=== PATIENT | female | born 1980 | race Caucasian/White ===

== ENCOUNTER 2016-08-08 07:55 | Emergency (ER) | payer OTHER ==
--- NOTE | 2016-08-08 08:07 | UC ---
Throat Pain/Nasal Eric HPI - HPI Summary HPI Summary: ST, fever, bilat ear pain x 4 days. Has 2 small children ages 6 and 2.5. Took ibuprofen at 0500. No flu shot this year. Children had flu shots. - History of Current Complaint Stated Complaint: SORE THROAT Time Seen by Provider: 08/08/16 08:03 Hx Obtained From: Patient ?: No Onset/Duration: Gradual Onset, Lasting Days, Still Present Severity: Moderate Pain Intensity: 4 Pain Scale Used: 0-10 Numeric Cough: Sputum Appears - green Associated Signs & Symptoms: Positive: Sinus Discomfort, Nasal Discharge, Other - ear pain bilat - Epiglottits Risk Factors Epiglottis Risk Factors: Negative - Allergies/Home Medications Allergies/Adverse Reactions: Allergies Allergy/AdvReac Type Severity Reaction Status Date / Time Metoclopramide [From Reglan] Allergy See Comment Verified 08/08/16 08:00 Prochlorperazine Allergy See Comment Verified 08/08/16 08:00 [From Compazine] Promethazine [From Phenergan] Allergy See Comment Verified 08/08/16 08:00 ANTI NAUSEA MEDS Allergy Unknown Uncoded 08/08/16 08:00 Reaction Details Home Medications: Home Medications Ibuprofen [Advil] 800 mg PO Q4H PRN 08/08/16 [History Confirmed 08/08/16] Dcykmrdeuwhlj-[id number]-Vtviw [Nyquil Severe Cold/Flu 5-6.25-10-325 mg/15Ml] 1 liq PO BEDTIME PRN 08/08/16 [History Confirmed 08/08/16] PMH/Surg Hx/FS Hx/Imm Hx Previously Healthy: Yes Endocrine History Of: Comment Only: Diabetes - Pre-Diabetic Cardiovascular History Of: Denies: Hypertension, Pacemaker/ICD GI/ History Of: Comment Only: Renal Disease - Hx Renal stones - Surgical History Surgical History: Yes Surgery Procedure, Year, and Place: 09/2015 BIOPSY LYMPH NODE-NECK(BENIGN) [facility] [place]. 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 Lives: With Family Alcohol Use: Weekly Alcohol Amount: 4-5 GLASSES PER WEEK Substance Use Type: Marijuana Substance Use Comment - Amount & Last Used: DAILY WILL REFRAIN THESE 24 HOURS PRIOR TO SURGERY Smoking Status (MU): Former Smoker Type: Cigarettes Amount Used/How Often: 1PPD 13 YRS Have You Smoked in the Last Year: No When Did the Patient Quit Smoking/Using Tobacco: 06/2013 Review of Systems Constitutional: Fever Skin: Negative Eyes: Negative ENT: Sore Throat Respiratory: Negative Cardiovascular: Negative Gastrointestinal: Negative Genitourinary: Negative Motor: Negative Neurovascular: Negative Musculoskeletal: Myalgia Neurological: Negative Psychological: Negative All Other Systems Reviewed And Are Negative: Yes Physical Exam Triage Information Reviewed: Yes Appearance: Well-Nourished, Ill-Appearing, Pain Distress Vital Signs: VS noted and temp 100.6 and tachycardia noted. Vital Signs Reviewed: Yes Eyes: Positive: Conjunctiva Clear ENT: Positive: Pharyngeal erythema, Nasal congestion, TMs normal, Tonsillar exudate, Other: - sinus tenderness. Negative: Tonsillar swelling Neck: Positive: Supple, Nontender, Enlarged Nodes @ - ant cervical bilat Respiratory: Positive: Lungs clear, Normal breath sounds, No respiratory distress Cardiovascular: Positive: RRR, No Murmur, Pulses Normal, Brisk Capillary Refill Abdomen Description: Positive: Nontender, No Organomegaly, Soft Musculoskeletal: Positive: Strength Intact, ROM Intact Neurological: Positive: Alert, Muscle Tone Normal Psychological Exam: Normal Skin Exam: Normal Re-Evaluation - Re-Evaluation First Eval Re-Evaluation Time: 08:45 - informed of strep positive result, given first dose Amox 500mg, awaiting flu result. Also had acetaminophen 650mg. Change: Unchanged - 0848 Throat Pain/Nasal Course/Dx - Course Course Of Treatment: rapid A positive. rapid flu neg- pt notified of both results. - Differential Dx/Diagnosis Differential Diagnosis/HQI/PQRI: Influenza, Laryngitis, Pharyngitis, Sinusitis, URI Provider Diagnoses: strep throat. fever Discharge - Discharge Plan Condition: Stable Disposition: HOME Prescriptions: Amoxicillin (*) 875 mg PO BID #20 tab Patient Education Materials: Strep Throat (ED) Referrals: Shante Chen MD [Primary Care Provider] - Additional Instructions: Your strep swab was positive and your flu swab was negative. Take two doses of the prescribed Amoxicillin today in addition to the dose given in urgent care. Return to urgent care or see your doctor if you have any new or worsening symptoms.
[2016-08-08] MEDS ORDERED: Acetaminophen TAB* 325 MG PO ONE (08:21)
[2016-08-08 08:27] VITALS: BP 103/66
[2016-08-08] MEDS ORDERED: Amoxicillin PO (*) 500 MG CAP PO ONE (08:32)
== END 2016-08-08 08:57 | disposition home or self-care (01) ==
LOC: UCCORT 07:55
DX: J02.0 Streptococcal pharyngitis (principal); R50.9 Fever, unspecified; Z88.8 Allergy status to other drugs, medicaments and biological substances; F12.90 Cannabis use, unspecified, uncomplicated; Z87.891 Personal history of nicotine dependence
CPT/HCPCS: 87502; 87651; 99212; A9270-GY; G0463

== ENCOUNTER 2016-12-28 12:19 | Emergency (ER) | payer OTHER ==
[2016-12-28 12:43] VITALS: BP 120/76
--- NOTE | 2016-12-28 13:38 | RAD ---
INDICATION: Left flank pain COMPARISON: CT abdomen pelvis October 29, 2015 TECHNIQUE: Noncontrast axial source images were acquired from the level hemidiaphragms to the symphysis pubis as part of CT imaging for renal stone. This examination is mildly limited because the patient had an MRI with contrast earlier today and there is some radiographic contrast within the collecting system Lung bases: The lung bases are clear. Liver: The liver is normal in size. Noncontrast imaging shows no evidence of a hepatic mass or ductal dilatation. Gallbladder: There are no calcified gallstones. There is no evidence of wall thickening or pericholecystic fluid.. Spleen: The spleen is normal in size. The noncontrast CT appearance is normal. Pancreas: Noncontrast imaging shows no pancreatic mass or ductal dilitation. Adrenal glands: No masses are identified. Kidneys/Bladder: There are several tiny lower pole calculi on the right which are in the 1 to 2 mm range. There are no other microcalcifications of urinary significance. CT evidence of hydronephrosis. Noncontrast imaging shows no evidence of a renal mass. The bladder is unremarkable.. Adenopathy: There is no evidence of intraperitoneal or retroperitoneal adenopathy. Evaluation is limited without oral contrast. Fluid collections: There are no free or localized fluid collections. Vessels: The aorta and iliac vessels are normal in caliber. There are no significant atherosclerotic changes. The IVC appears normal Pelvic organs: The uterus and adnexa appear normal GI tract: Evaluation of the bowel is limited without oral contrast. The stomach, small bowel, and lower GI tract appear grossly normal. There are no obstructive findings. Soft tissues: No soft tissue abnormalities of the extraperitoneal abdomen or pelvis are identified. Osseous structures: There are no acute osseous findings. IMPRESSION: NONOBSTRUCTIVE RIGHT-SIDED NEPHROLITHIASIS.
--- NOTE | 2016-12-28 13:56 | UC ---
Back Pain HPI - HPI Summary HPI Summary: DULL LEFT FLANK PAIN FOR TWO DAYS; TODAY PAIN BECAME WORSE. NO FEVER. NO ABDOMINAL PAIN. HISTORY KIDNEY STONES IN 2006. HISTORY OF UTI. - History of Current Complaint Chief Complaint: UCGU Stated Complaint: KIDNEY STONE Time Seen by Provider: 12/28/16 12:40 Hx Obtained From: Patient Hx Last Menstrual Period: 12/23/16 ?: No Onset/Duration: Gradual Onset, Lasting Days, Worse Since - THIS AM Timing: Intermittent Severity Initially: Mild Severity Currently: Moderate Back Pain: Is Discrete @ - LEFT FLANK Character: Dull, Aching, Spasmodic Aggravating: Movement, Cough Alleviating: Rest, Position Associated Signs And Symptoms: Positive: Flank Pain. Negative: Swelling, Bruising, Fever, Weakness, Numbness, Tingling, Abdominal Pain, Bladder Incontinence, Bowel Incontinence, Weight Loss, Pain with Weight Bearing - Risk Factors AAA Risk Factors: Negative TAD Risk Factors: Negative Cauda Equina Risk Factors: Negative Epidural Abscess Risk Factors: Negative - Allergies/Home Medications Allergies/Adverse Reactions: Allergies Allergy/AdvReac Type Severity Reaction Status Date / Time Metoclopramide [From Reglan] AdvReac See Comment Verified 12/28/16 12:44 Prochlorperazine AdvReac See Comment Verified 12/28/16 12:44 [From Compazine] Promethazine [From Phenergan] AdvReac See Comment Verified 12/28/16 12:44 PMH/Surg Hx/FS Hx/Imm Hx Previously Healthy: Yes Endocrine History Of: Denies: Diabetes Cardiovascular History Of: Denies: Hypertension, Pacemaker/ICD GI/ History Of: Denies: Renal Disease - Surgical History Surgical History: Yes Surgery Procedure, Year, and Place: 09/2015 BIOPSY LYMPH NODE-NECK([facility]IGN) [facility]. 01/2015 [facility]. SINUS SURGERY 05/2016 - Family History Known Family History: Positive: Hypertension - Social History Occupation: Employed Full-time Lives: With Family Alcohol Use: Daily Alcohol Amount: 4-5 GLASSES PER WEEK Substance Use Type: Marijuana Substance Use Comment - Amount & Last Used: daily usage, last used today Smoking Status (MU): Former Smoker Type: Cigarettes Amount Used/How Often: 1PPD 13 YRS Have You Smoked in the Last Year: No When Did the Patient Quit Smoking/Using Tobacco: 06/2013 - Immunization History Most Recent Influenza Vaccination: not this season Review of Systems Constitutional: Negative Skin: Negative Eyes: Negative ENT: Negative Respiratory: Negative Cardiovascular: Negative Gastrointestinal: Negative Genitourinary: Negative Motor: Negative Neurovascular: Negative Musculoskeletal: Myalgia - LEFT FLANK Neurological: Negative Psychological: Negative All Other Systems Reviewed And Are Negative: Yes Physical Exam Triage Information Reviewed: Yes Appearance: Well-Appearing, No Pain Distress, Well-Nourished Vital Signs: Initial Vital Signs Temp 98.2 F 12/28/16 12:39 Pulse 76 12/28/16 12:39 Resp 14 12/28/16 12:39 BP 120/76 12/28/16 12:39 Pulse Ox 98 12/28/16 12:39 Vital Signs Reviewed: Yes Eye Exam: Normal ENT Exam: Normal ENT: Positive: Normal ENT inspection, Hearing grossly normal, Pharynx normal, TMs normal Dental Exam: Normal Neck exam: Normal Respiratory Exam: Normal Respiratory: Positive: Chest non-tender, Lungs clear, Normal breath sounds, No respiratory distress, No accessory muscle use Cardiovascular Exam: Normal Cardiovascular: Positive: RRR, No Murmur Abdominal Exam: Normal Abdomen Description: Positive: Nontender, No Organomegaly, Soft. Negative: CVA Tenderness (R), CVA Tenderness (L) Musculoskeletal Exam: Normal Neurological Exam: Normal Psychological Exam: Normal Skin Exam: Normal Back Pain Course/Dx - Differential Dx/Diagnosis Differential Diagnosis/HQI/PQRI: Renal Colic Provider Diagnoses: RIGHT SIDED NONOBSTRUCVTIVE RENAL CALCULI Discharge - Discharge Plan Condition: Stable Disposition: HOME Prescriptions: Ketorolac TAB * [Toradol TAB *] 10 mg PO Q8HR PRN #16 tab PRN Reason: Pain Tamsulosin CAP* [Flomax CAP*] 0.4 mg PO DAILY #5 cap Patient Education Materials: Kidney Stones (ED), Renal Colic (ED) Referrals: Shante Chen MD [Primary Care Provider] - Odell Iyer MD [Medical Doctor] -
== END 2016-12-28 14:01 | disposition home or self-care (01) ==
LOC: UCCORT 12:19
DX: N20.0 Calculus of kidney (principal); Z87.442 Personal history of urinary calculi; Z87.440 Personal history of urinary (tract) infections; Z32.02 Encounter for pregnancy test, result negative; Z88.8 Allergy status to other drugs, medicaments and biological substances; Z87.891 Personal history of nicotine dependence
CPT/HCPCS: 74176; 81003; 84702; 99212; G0463

== ENCOUNTER 2017-10-03 11:52 | Emergency (ER) | payer OTHER ==
--- OUTSIDE RECORDS SUMMARY | 2017-10-03 12:24 | XMS REPORT ---
:1980 External Reference #:[id number] Author Organization [facility] Address [address] [place] [address] Phone [phone] Care Team Providers Name Role Phone Shante Chen MD Primary Care Physician Unavailable Payers Type Date Identification Numbers Payment Provider Subscriber Commercial Effective: Policy Number: [id number] Better Felicia Gold 2016 [employer] Number: Vanessa #[id number] [phone] Group Name: Medicaid [facility] [address] PayID: [id number] Problems Date Description Provider Status Onset: 09/15/2017 Allergic rhinitis due to pollen Zack Ham M.D. Active Onset: 06/09/2017 Chronic sinusitis Zack Ham M.D. Active Onset: 06/09/2017 Immunization Zack Ham M.D. Active Family History Date Family Member(s) Problem(s) Comments General Seasonal Allergies General Diabetes General Hypertension General Skin Disease/ rash Father Cancer Father Skin Disease/ rash Mother Seasonal Allergies Mother Diabetes Mother Hypertension First Brother Seasonal Allergies Social History Type Date Description Comments Marital Status Single Lives With Male Partner Lives With Children 2 Home Environment Musty Basement Home Environment Cotton Mattress Cover Home Environment Cotton Comforter Home Environment Down Comforter Home Environment Water Source: Well Home Environment 20+Year Old Home, 2 Years In Current Home Home Environment Lives in a 2 level home Home Environment The basement is moldy Home Environment The basement is wet and dehumidifier used Home Environment Uses propane gas heating Home Environment Does not have an air conditioner Home Environment The floors are carpeted Home Environment The floors are tile Home Environment The home is lillie Home Environment There are draperies in the home Home Environment Does not use air marketing strategy analyst Home Environment Uses a dehumidifier Home Environment Pillows are not encased in an allergy proof case Home Environment Mattress is 8 years old Home Environment Mattress is not encased in an allergy proof case Smoke-Free Home is smoke-free Pets 1 cat Work Status Unemployed Cigarette Use Former Cigarette Smoker Cigarette Use Former Cigarette Smoker 1 Pack Daily Cigars Never Smoked Cigars Pipe Never Smoked A Pipe Smokeless Tobacco Never Used Smokeless Tobacco ETOH Use Consumes 2-3 beers per day ETOH Use Drinks 2 Alcoholic Beverages Per Day ETOH Use Occasionally consumes wine ETOH Use Rarely consumes liquor ETOH Use Currently consumes alcohol Smoking Patient is a former smoker Allergies, Adverse Reactions, Alerts Date Description Reaction Status Severity Comments 06/08/2017 Phenergan involuntary muscle spasms active 06/08/2017 Compazine involuntary muscle spasms active 06/08/2017 Reglan involuntary muscle spasms active Medications Medication Date Status Form Strength Qnty SIG Indications Ordering Provider Amoxicillin/Cl 09/15/ Active Tablets 875-125mg 30tabs 1 twice a Zack avulanate 2017 day Elia Ham Potassium Fluticasone 09/15/ Active Suspension 50mcg/Act 48gm 1 squirt Zack Propionate 2018 each Elia Ham nostril daily Sertraline HCL / Active Tablets 100mg 1xday Gustavo, 0000 MD Shante Magnesium 00/ Active Tablets 400(240Mg) 1x/day Unknown Oxide 0000 mg Potassium 00/ Active Tablets ER 10Meq 2x/day Gustavo, Citrate ER 0000 (1080 mg) MD Shante Multi Vitamin 00/00/ Active Tablets 1x/day Unknown And Minerals 0000 Biotin 0000/ Active Tablets 300mcg 1x/day Unknown 0000 Lorazepam 00/ Active Tablets 1mg only as Unknown 0000 needed Flonase / Active Suspension 50mcg/Act 1 spray Unknown Allergy Relief 0000 each Childrens nostril once daily Vital Signs Date Vital Result Comment 09/15/2017 Height 63 inches 5'3" Weight 116.00 lb Weight in kg's 52.618 Respiratory Rate 16 /min Heart Rate 64 /min O2 % BldC Oximetry 96 % BP Systolic 95 mmHg BP Diastolic 61 mmHg BMI (Body Mass Index) 20.5 kg/m2 07/28/2017 Height 63 inches 5'3" Weight 111.00 lb Weight in kg's 50.350 Respiratory Rate 16 /min Heart Rate 59 /min O2 % BldC Oximetry 98 % BP Systolic 108 mmHg BP Diastolic 74 mmHg BMI (Body Mass Index) 19.7 kg/m2 06/09/2017 Height 63 inches 5'3" Weight 116.00 lb Weight in kg's 52.618 Respiratory Rate 18 /min Heart Rate 63 /min O2 % BldC Oximetry 96 % BP Systolic 95 mmHg BP Diastolic 56 mmHg BMI (Body Mass Index) 20.5 kg/m2 Results Description No Information Procedures Date CPT Code Description Status 07/28/2017 72057 Skin Test Scratch # Of Units ____ Completed Encounters Type Date Location Provider CPT E/M Dx Office Visit 09/15/2017 11:00a [facility] Zack Ham M.D. 10254 J30.1 J32.9 Z23 Office Visit 07/28/2017 11:00a [facility] Zack Ham M.D. 47589 J32.9 Z23 Office Visit 06/09/2017 10:00a [facility] Zack Ham M.D. 09613 J32.9 Z23 Plan of Care Future Appointment(s):12/15/2017 11:00 am - Zack Ham M.D. at [facility]09/15/2017 - Zack Ham M.D.J30.1 Allergic rhinitis due to pollenFollow up:3 months for the follow up she will call when she is ready for the ImmunotherapyRecommendations:she is still thinking about the Immunotherapy we did discuss the benefits and the likely rainey of anaphylaxis once she makes her decision she will let us know keeping in mind that with structural abnormalities the level of improvement might be less than would be expected other crespo she expressed her understanding To keep other differentials like Lopez in mindJ32.9 Chronic sinusitis, unspecifiedRecommendations:she is going to talk to the ENT and explore the possibility of further management from his standpoint she had surgery in the past but than was told that "more could be done" she wants to try the Flonase we did discuss her blood work ( Immunoglobulin level and the Pneumococcal titre again (levels with in normal limit some limitation in the response to the pneumococcal titre she does not want to have any immunoglobulin therapy at this point Fungal sinusitis should also be kept in mind too will do the serum IgE level and AF Ig panel ANCA consider having Flu vaccine Augmentin 875 1 tab po q12 for 2 weeks (to wait for 1-2 days before filling)Z23 Encounter for immunizationNew Labs:Ige TotalAnca C/ P W/RFL Titer Mpo JU7Duubwig A.Fumigatus IgeRecommendations:Patient to discuss influenza with patient's primary-care provider. Educational material provided tothe patient.AllNew Medication:Amoxicillin/Clavulanate Potassium 875-125 mgFluticasone Propionate 50 mcg/Act
--- OUTSIDE RECORDS SUMMARY | 2017-10-03 12:24 | XMS REPORT ---
:1980 External Reference #:[id number] Author Organization [facility] Address [address], [address] [place] [address] Phone [phone] Care Team Providers Name Role Phone Shante Chen MD Care Team Information Licensed Bondsman Unavailable Shante Chen MD Primary Care Physician Unavailable Payers Type Date Identification Numbers Payment Provider Subscriber Commercial Policy Number: [id number] [facility] Felicia Gold PayID: [id number] [address] [place] [address] Medicaid Policy Number: [id number] Medicaid Felicia Gold Group Name: 1 1 [address] PayID: [id number] [place] [address] Problems Date Description Provider Status Onset: 04/09/2015 Nausea Galina Perez M.D. Active Onset: 05/27/2015 Anxiety state Karen Bonner MD Active Onset: 07/08/2015 Candidiasis Jinny Caldwell M.D. Active Onset: 09/05/2017 Allergic rhinitis Shante Chen MD Active Onset: 03/17/2017 Chronic sinusitis Shante Chen MD Active Onset: 03/17/2017 Joint pain Shante Chen MD Active Onset: 01/17/2017 Kidney stone Shante Chen MD Active Onset: 12/15/2016 Pain in left arm Shante Chen MD Active Onset: 12/15/2016 Abdominal pain Shante Chen MD Active Onset: 12/15/2016 Skin sensation disturbance Shante Chen MD Active Onset: 07/26/2011 Tobacco user Nataly Ji, RESPIRATORY SERVICES MANAGER Resolved Resolved: 04/09/2015 Family History Date Family Member(s) Problem(s) Comments Father Skin Cancer melanoma Mother Skin Cancer Social History Type Date Description Comments Lives With Boyfriend Diet Patient follows no dietary restrictions Occupation Not Currently Working ADL's/IADL's Independent with all ADL's Cigarette Use Former Cigarette Smoker ETOH Use Rarely consumes alcohol Smoking Patient is a former smoker Recreational Drug Use Current Drug User marijuana, daily Recreational Drug Use Former Drug User history of multiple drug abuse, denies IVDA Daily Caffeine Consumes on average 3 cups of regular coffee per day Allergies, Adverse Reactions, Alerts Date Description Reaction Status Severity Comments 07/22/2011 Reglan active 07/22/2011 Phenergan active 04/09/2015 Compazine active Medications Medication Date Status Form Strength Qnty SIG Indications Ordering Provider Tamiflu 09/02 Active Capsules 75mg 10cap 1 tab by Shante s mouth twice Gustavo, a day for 5 MD days Potassium 01/17 Active Tablets ER 10Meq 60tab 1 tab by Shante Citrate (1080 mg) s mouth once Gustavo, a day with MD meals Magnesium Active Tablets 250mg 1 by mouth Galina / every day Elia Perez Womens One Daily Active Tablets 1 by mouth Unknown /0000 every day Vitamin D3 Super Active Capsules 2000Unit 1 by mouth Unknown Strength /0000 every day Sertraline HCL Active Tablets 100mg 30tab take 1 s tablet once Gustavo, daily Tramadol HCL 02/09 Hx Tablets 50mg 21tab take one s tablet by Gustavo, mouth every MD 8 hours as needed pain. Flomax 12/30 Hx Capsules 0.4mg 7caps 1 tab by Shante mouth every Gustavo, day Ketorolac 12/30 Hx Tablets 10mg 14tab 1 tab by Shante Tromethamine s mouth twice Gustavo, a day as MD needed for severe pain Nystatin 12/15 Hx Suspension [id number] 473ml 4-6 t/ML milliliters Gustavo, by mouth MD every 6hrs; swish in mouth for several minutes and spit Fluconazole 12/15 Hx Tablets 100mg 16tab 2 tabs po Shante s daily, 1 Gustavo, tab daily MD for 14 days Cyclobenzaprine 10/18 Hx Tablets 10mg 90tab 1 by mouth Shante HCL s at night as Gustavo, needed for MD muscle spasms/musc le pain Gabapentin 02/23 Hx Capsules 100mg 180ca 2 tab by Shante ps mouth three Gustavo, times a day Ativan 11/23 Hx Tablets 1mg 14tab /2-1 tab Tadeus E. /2015 s per day day Ha, - as needed 02/23 for anxiety Ofloxacin 10/12 Hx Solution 0.3% 20ml 1-2 drops Shante (Ophthalmic) four times Gustavo, - daily for 7 Sudafed Nasal 09/05 Hx Tablets 30mg 30tab 1 tab by J06.9 Shante Decongestant s mouth twice Gustavo, Maximum Strength - a day 10/02 Mucinex DM 09/05 Hx Tablets ER 30-600mg 30tab 1 tab every Shante 12HR s 12 hours as Gustavo, - needed 10/02 Ativan 08/04 Hx Tablets 1mg 60tab 1 by mouth Tadeus E. s each day Ha, - 10/02 Ativan 07/29 Hx Tablets 0.5mg 5tabs 2 tab by Shante mouth once Gustavo, - a day as 08/04 needed for anxiety Nystatin 06/26 Hx Suspension [id number] 500ml 4-6 ml po q B37.9 Shante t/ML 6hrs; swish Gustavo, - in mouth 08/12 for minutes and spit Amoxicillin/Clav 06/20 Hx Tablets 875-125mg 6tabs 1 tab by Shante ulanate mouth Gustavo, Potassium - q12hrs for 06/30 3 days Sertraline HCL 06/17 Hx Tablets 100mg 45tab 1 and 12 Tadeus E. s by mouth Ha, - every day 07/01 Sertraline HCL 05/27 Hx Tablets 150 45tab 1 and 1/2 Tadeus E. s by mouth Ha, - every day 06/17 Lorazepam 05/07 Hx Tablets 1mg 30tab 1 tab by R11.0 Kens E. 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 HCL - tablet by Ha, 05/27/2015 mouth once MD daily Hx Tablets 27-1mg 100tab 1 by mouth Suyapa Case s every day M.DJoseph 05/06/2015 Propranolol Hx Tablets 20mg take one KIA Case - tablet by MJordi 06/20/2015 mouth once a day Dramamine Hx Tablets 50mg as needed Suyapa Case M.D. 06/20/2015 Riboflavin Hx Capsules 100mg 1 by mouth R11.0 Unknown - every day 08/12/2015 *taking OTC* Xanax Hx Tablets 0.25mg take 1 tab Unknown - by mouth 07/01/2015 up to three times daily as needed for anxiety Metronidazole Hx Gel 0.75% Santino Eng MD 07/08/2015 Fluconazole Hx Tablets 150mg 1 po qday, Santino Eng - last dose MD Le 07/08/2015 07/01/15. Ativan Hx Tablets 0.25mg 10tabs 1 tab by Unknown - mouth once 07/29/2015 a day as needed anxiety Tamsulosin Hx Capsules 0.4mg take 1 Unknown HCL capsule once daily Immunizations CPT Code Status Date Vaccine Lot # [id number] Given 09/30/2010 Tdap injection 70312 Given 09/30/2010 flu vaccination Vital Signs Date Vital Result Comment 09/05/2017 BP Systolic Sitting Right Arm 107 mmHg BP Diastolic Sitting Right Arm 70 mmHg Heart Rate 91 /min Height 64 inches 5'4" Weight 117.00 lb BMI (Body Mass Index) 20.1 kg/m2 BSA (Body Surface Area) 1.56 m2 [place] body weight in kilograms 54 03/17/2017 BP Systolic 107 mmHg BP Diastolic 67 mmHg Heart Rate 77 /min Respiratory Rate 20 /min Height 64 inches 5'4" Weight 114.00 lb BMI (Body Mass Index) 19.6 kg/m2 BSA (Body Surface Area) 1.54 m2 [place] body weight in kilograms 54 O2 % BldC Oximetry 96 % 01/17/2017 BP Systolic Sitting Right Arm 106 mmHg BP Diastolic Sitting Right Arm 72 mmHg Height 64 inches 5'4" Weight 110.00 lb BMI (Body Mass Index) 18.9 kg/m2 BSA (Body Surface Area) 1.52 m2 [place] body weight in kilograms 54 01/05/2017 BP Systolic Sitting Right Arm 110 mmHg BP Diastolic Sitting Right Arm 80 mmHg Height 64 inches 5'4" Weight 113.00 lb BMI (Body Mass Index) 19.4 kg/m2 BSA (Body Surface Area) 1.53 m2 [place] body weight in kilograms 54 12/15/2016 BP Systolic 99 mmHg BP Diastolic 60 mmHg Heart Rate 90 /min Height 64 inches 5'4" Weight 115.00 lb BMI (Body Mass Index) 19.7 kg/m2 BSA (Body Surface Area) 1.55 m2 [place] body weight in kilograms 54 10/18/2016 BP Systolic 114 mmHg BP Diastolic 64 mmHg Heart Rate 78 /min Height 64 inches 5'4" Weight 117.00 lb BMI (Body Mass Index) 20.1 kg/m2 BSA (Body Surface Area) 1.56 m2 02/24/2016 BP Systolic Sitting Right Arm 98 mmHg BP Diastolic Sitting Right Arm 62 mmHg Height 64 inches 5'4" Weight 109.00 lb BMI (Body Mass Index) 18.7 kg/m2 BSA (Body Surface Area) 1.51 m2 10/02/2015 BP Systolic Sitting Left Arm 106 mmHg BP Diastolic Sitting Left Arm 72 mmHg Heart Rate 68 /min Respiratory Rate 19 /min Height 64 inches 5'4" Weight 105.00 lb BMI (Body Mass Index) 18.0 kg/m2 BSA (Body Surface Area) 1.49 m2 09/05/2015 BP Systolic Sitting Left Arm 108 mmHg BP Diastolic Sitting Left Arm 82 mmHg Body Temperature 98.2 F Heart Rate 68 /min Height 64 inches 5'4" Weight 107.00 lb BMI (Body Mass Index) 18.4 kg/m2 BSA (Body Surface Area) 1.50 m2 O2 % BldC Oximetry 97 % 08/13/2015 BP Systolic 112 mmHg BP Diastolic 58 mmHg Height 64 inches 5'4" Weight 110.00 lb BMI (Body Mass Index) 18.9 kg/m2 BSA (Body Surface Area) 1.52 m2 07/08/2015 BP Systolic Sitting Left Arm 106 mmHg BP Diastolic Sitting Left Arm 62 mmHg Body Temperature 97.6 F Height 64 inches 5'4" Weight 108.50 lb BMI (Body Mass Index) 18.6 kg/m2 BSA (Body Surface Area) 1.51 m2 07/01/2015 BP Systolic 122 mmHg BP Diastolic 60 mmHg Height 64 inches 5'4" Weight 107.00 lb BMI (Body Mass Index) 18.4 kg/m2 BSA (Body Surface Area) 1.50 m2 06/20/2015 BP Systolic 98 mmHg BP Diastolic 66 mmHg Body Temperature 98.2 F Heart Rate 52 /min Height 64 inches 5'4" Weight 109.00 lb BMI (Body Mass Index) 18.7 kg/m2 BSA (Body Surface Area) 1.51 m2 05/27/2015 BP Systolic 95 mmHg BP Diastolic 60 mmHg Heart Rate 80 /min Height 64 inches 5'4" Weight 105.00 lb BMI (Body Mass Index) 18.0 kg/m2 BSA (Body Surface Area) 1.49 m2 O2 % BldC Oximetry 98 % 05/07/2015 BP Systolic 110 mmHg BP Diastolic 66 mmHg Heart Rate 86 /min Height 64 inches 5'4" Weight 105.00 lb BMI (Body Mass Index) 18.0 kg/m2 BSA (Body Surface Area) 1.49 m2 O2 % BldC Oximetry 96 % Ra 05/02/2015 BP Systolic 104 mmHg BP Diastolic 62 mmHg Height 63 inches 5'3" Weight 105.50 lb BMI (Body Mass Index) 18.7 kg/m2 BSA (Body Surface Area) 1.47 m2 Last Menstrual Period [id number] 04/11/2015 BP Systolic 102 mmHg BP Diastolic 82 mmHg Heart Rate 100 /min Respiratory Rate 20 /min Weight 106.12 lb 04/09/2015 BP Systolic 102 mmHg BP Diastolic 62 mmHg Heart Rate 72 /min Respiratory Rate 18 /min Height 63 inches 5'3" Weight 107.00 lb BMI (Body Mass Index) 19.0 kg/m2 BSA (Body Surface Area) 1.48 m2 09/03/2014 BP Systolic 118 mmHg BP Diastolic 72 mmHg Body Temperature 98.7 F Heart Rate 82 /min Respiratory Rate 19 /min Height 63 inches 5'3" Weight 119.00 lb 11/06/2013 BP Systolic 112 mmHg BP Diastolic 72 mmHg Body Temperature 98.9 F Height 63 inches 5'3" Weight 129.00 lb 01/12/2013 BP Systolic 106 mmHg BP Diastolic 64 mmHg Body Temperature 98.3 F Height 64 inches 5'4" Weight 107.00 lb 09/25/2012 BP Systolic 114 mmHg BP Diastolic 72 mmHg Body Temperature 98.0 F Height 63 inches 5'3" Weight 110.00 lb 09/27/2011 BP Systolic 104 mmHg BP Diastolic 66 mmHg Heart Rate 74 /min Respiratory Rate 18 /min Height 64 inches 5'4" Weight 105.00 lb 07/23/2011 BP Systolic 108 mmHg BP Diastolic 66 mmHg Height 64 inches 5'4" Weight 107.00 lb 07/22/2011 BP Systolic 122 mmHg BP Diastolic 78 mmHg Body Temperature 98.2 F Height 64 inches 5'4" Weight 107.00 lb Results Test Date Test Result H/L Range Note Lyme Igg & Igm By 01/17/2017 Lyme AB Igg By Western . 1 Western Blot Blot P93 AB Absent . 1 P66 AB Absent . 1 P58 AB Absent . 1 P45 AB Absent . 1 P41 AB Absent . 1 P39 AB Absent . 1 P30 AB Absent . 1 P28 AB Absent . 1 P23 AB Absent . 1 P18 AB Absent . 1 Lyme Igg WB Interpretation Negative . 1, 2 Lyme AB Igm By Western Blot . 1 P41 AB Absent . 1 P39 AB Absent . 1 P23 AB Present . 1 Lyme Igm WB Interpretation Negative . 1, 3 Laboratory test finding 01/11/2017 Immunoglobulin G TNP () 4 Immunoglobulin M 123 mg/dL 37 - 286 5 Immunoglobulin A 142 mg/dL 61 - 356 6 Igg Subclasses 01/11/2017 Total IgG 1030 mg/dL 767 - 1590 Immunoglobulin G1 422 mg/dL 341 - 894 Immunoglobulin G2 346 mg/dL 171 - 632 Immunoglobulin G3 72.2 mg/dL 7 Immunoglobulin G4 9.6 mg/dL 8 Diptheria Igg Titer 01/11/2017 Diphtheria IgG Antibody Positive 9 Diphtheria IgG Value > 1.00 IU/mL 10 Lymphocyte Proliferation PNL 01/11/2017 Mitogens Interpretation See Comment 11 Viab of Lymphs at Day 0 92.2 % >=75.0 Max Prolif of PWM as %CD45 28.5 % >=4.5 Max Prolif of PWM as %CD3 23.5 % >=3.5 Max Prolif of PWM as %CD19 26.8 % >=3.9 Max Prolif of Pha as %CD45 82.2 % >=49.9 Max Prolif of Pha as %CD3 83.0 % >=58.5 Mitogen Comment See Comment 12 Lymph Prolif Antigen Interp See Comment 13 T&B Cell Lymphocyte 01/11/2017 Absolute CD45 Count 3.32 thou/mcL 0.82 -2.84 Evaluation Percent CD3 Cells (T Cells) 87 % 58-86 Percent CD19 Cells (B Cells) 10 % 7-24 % CD16+CD56 Cells (NK Cells) 3 % 4-28 Percent CD4 Cell ([place] Cell) 58 % 32-64 Percent CD8 Cells (Supp Cell) 28 % 15-40 Absolute CD3 Count (T Cells) 2881 cells/L 550-2202 Absolute CD19 Count (B Cells) 338 cells/L 81-409 Absolute CD16+CD56 Count (NK) 86 cells/L 59-513 Absolute CD4 Count (Help Cell) 1934 cells/L 365-1437 Absolute CD8 Count (Supp Cell) 939 cells/L 171-846 T-[place]/Suppressor Ratio 2.1 >=0.9 T B Cell Comment See Comment 14 S.Pneumoniae Igg AB 23 01/11/2017 S. pneumoniae Type 1 16.2 g/mL >= 2.3 Serotyp IgG AB S. pneumoniae Type 2 IgG AB 3.3 g/mL >=1.0 S. pneumoniae Type 3 IgG AB 3.9 g/mL >=1.8 S. pneumoniae Type 4 IgG AB 1.3 g/mL >=0.6 S. pneumoniae Type 5 IgG AB 4.9 g/mL >=10.7 S. pneumoniae Type 8 IgG AB 0.8 g/mL >=2.9 S. pneumoniae Type 9N IgG AB 2.2 g/mL >=9.2 S. pneumoniae Type 12F IgG AB 0.1 g/mL >=0.6 S. pneumoniae Type 14 IgG AB 0.7 g/mL >=7.0 S. pneumoniae Type 17F IgG AB 3.5 g/mL >=7.8 S. pneumoniae Type 19F IgG AB 27.4 g/mL >=15.0 S. pneumoniae Type 20 IgG AB 0.2 g/mL >=1.3 S. pneumoniae Type 22F IgG AB 52.9 g/mL >=7.2 S. pneumoniae Type 23F IgG AB 68.3 g/mL >=8.0 S. pneumoniae Type 6B IgG AB 0.7 g/mL >=4.7 S. pneumoniae Type 10A IgG AB 0.3 g/mL >=2.9 S. pneumoniae Type 11A IgG AB 1.1 g/mL >=2.4 S. pneumoniae Type 7F IgG AB 7.9 g/mL >=3.2 S. pneumoniae Type 15B IgG AB 7.6 g/mL >=3.3 S. pneumoniae Type 18C IgG AB 0.8 g/mL >=3.3 S. pneumoniae Type 19A IgG AB 0.9 g/mL >=17.1 S. pneumoniae Type 9V IgG AB 16.6 g/mL >=2.6 S. pneumoniae Type 33F IgG AB 2.6 g/mL >=1.7 15 Tetanus Toxoid Igg Antibody,S 01/11/2017 Tetanus Toxoid IgG Antibody Positive 16 Tetanus Toxoid IgG Value 1.30 IU/mL 17 Comprehensive Metabolic Panel 01/05/2017 Glucose 83 mg/dL 74-106 18 BUN 13 mg/dL 7-18 18 Creatinine 0.8 mg/dL 0.6-1.3 18 Glom Filtration Rate, Estimate >60 mL/min >60 18 If >60 mL/min >60 18, 19 BUN/Creat 16.2 ratio 18 Sodium 141 mmol/L 136-145 18 Potassium 4.3 mmol/L 3.5-5.1 18 Chloride 106 mmol/L 98-107 18 Carbon Dioxide 28 mmol/L 21-32 18 Anion Gap 7 mEq/L Low 8-16 18 Calcium 8.8 mg/dL 8.5-10.1 18 Total Protein 7.4 g/dL 6.4-8.2 18 Albumin 4.1 g/dL 3.4-5.0 18 Globulin 3.3 g/dL 1.9-4.3 18 Alb/Glob 1.2 ratio 18 Bilirubin,Total 0.3 mg/dL 0.2-1.0 18 Sgot/Ast 13 U/L Low 15-37 18, 20 SGPT/Alt 19 U/L 12-78 18 Alkaline Phosphatase 62 U/L 45-117 18 CBS W/Automated Diff 01/05/2017 White Blood Count 12.0 K/uL High 3.1-10.7 18 Red Blood Count 4.66 M/uL 3.90-5.40 18 Hemoglobin 13.9 gm/dL 11.6-15.8 18 Hematocrit 41.4 % 36.0-46.1 18 Mean Cell Volume 88.8 fl 80.9-99.0 18 Mean Corpuscular HGB 29.8 pg 25.9-32.7 18 Mean Corpuscular HGB Conc 33.6 g/dL 30.8-34.3 18 Platelet Count 276 K/uL 150-400 18 Red Cell Distri Width SD 42.6 fl 3-47 18 Red Cell Distri Width %CV 13.4 % 11.7-14.4 18 Mean Platelet Volume 11.8 fL 8.9-12.4 18 Neut% 67.7 % 40.4-72.8 18 Lymph % 25.8 % 20.0-42.0 18 Floyd % 5.8 % 4.3-13.2 18 Eo% 0.4 % 0.0-6.6 18 Bas% 0.3 % 0.0-1.1 18 Neut# 8.11 K/uL High 1.8-7.0 18 Lymph # 3.09 K/uL 1.0-4.0 18 Floyd # 0.69 K/uL 0.3-0.9 18 Eos # 0.05 K/uL 0.0-0.5 18 Baso # 0.03 K/uL 0.0-0.1 18 Laboratory test finding 01/05/2017 Thyroid Stim Hormone 0.51 uIU/mL 0.30- 4.20 18 Free T4 1.38 ng/dL 0.76-1.46 18 Sedimentation Rate 3 mm/hr 0-20 18, 21 C-Reactive Protein,Cardiac 0.56 mg/L <3.0 18 Anti-Nuclear Antibodies Direct Negative AU/mL Negative 18, 22 Glycohemoglobin A1c 01/05/2017 Glycohemoglobin (A1c) 5.5 % 4.2-6.3 18, 23 eAG 111 mg/dL 18 Laboratory test finding 12/28/2016 Poc , Urine Negative Negative 24 Laboratory Studies 12/28/2016 Bedside Urine Specific 1.015 1.010-1.030 [place] (Lab Bedside Urine Urobilinogen (Lab) 0.2 Bedside Urine pH (Lab) 7.0 5-9 Rapid Influenza A & B 08/08/2016 Influenza A Molecular NEGATIVE Negative 25 Molecular Influenza B Molecular NEGATIVE Negative Laboratory test finding 08/08/2016 Rapid Strep Molecular POSITIVE Negative 26 , urine (cc) 01/15/2016 HCG, Urine Qualitative Negative Negative Laboratory test finding 10/29/2015 Magnesium 2.3 mg/dL 1.8-2.4 Glycohemoglobin A1c 10/29/2015 Glycohemoglobin (A1c) 5.6 % 4.2-6.3 27 eAG 114 mg/dL Comprehensive Metabolic Panel 10/29/2015 Glucose 86 mg/dL 74-106 BUN 12 mg/dL 7-18 Creatinine 0.9 mg/dL 0.6-1.3 Glom Filtration Rate, Estimate >60 mL/min >60 If >60 mL/min >60 28 BUN/Creat 13.3 ratio Sodium 140 mmol/L 136-145 Potassium 4.2 mmol/L 3.5-5.1 Chloride 106 mmol/L 98-107 Carbon Dioxide 28 mmol/L 21-32 Anion Gap 6 mEq/L Low 8-16 Calcium 8.4 mg/dL Low 8.5-10.1 Total Protein 7.0 g/dL 6.4-8.2 Albumin 3.4 g/dL 3.4-5.0 Globulin 3.6 g/dL 1.9-4.3 Alb/Glob 0.9 ratio Bilirubin,Total 0.3 mg/dL 0.2-1.0 Sgot/Ast 14 U/L Low 15-37 29 SGPT/Alt 18 U/L 12-78 Alkaline Phosphatase 55 U/L 45-117 Laboratory test finding 10/02/2015 Ferritin 55 ng/mL 8-252 Iron-Tibc-%Sat 10/02/2015 Serum Iron 85 g/dL 50-170 Total Iron Binding Capacity 445 g/dL 250-450 Transferrin %Saturation 19 % 12-57 Vitamin B12 And Folate 10/02/2015 Vitamin B12 595 pg/mL 193-986 Folic Acid 47.6 ng/mL High 3.1-17.5 30 CBC W/Automated Diff 10/02/2015 White Blood Count 10.1 K/uL 3.1-10.7 Red Blood Count 4.49 M/uL 3.90-5.40 Hemoglobin 13.1 gm/dL 11.6-15.8 Hematocrit 39.3 % 36.0-46.1 Mean Cell Volume 87.5 fl 80.9-99.0 Mean Corpuscular HGB 29.2 pg 25.9-32.7 Mean Corpuscular HGB Conc 33.3 g/dL 30.8-34.3 Platelet Count 259 K/uL 155-360 Red Cell Distri Width SD 39.6 fl 3-47 Red Cell Distri Width %CV 12.7 % 11.7-14.4 Mean Platelet Volume 11.2 fL 8.9-12.4 Neut% 59.2 % 40.4-72.8 Lymph % 34.5 % 17.0-46.1 Floyd % 4.8 % 4.3-13.2 Eo% 1.0 % 0.0-6.6 Bas% 0.5 % 0.0-1.1 Neut# 5.96 K/uL 1.8-7.0 Lymph # 3.47 K/uL 1.8-7.0 Floyd # 0.48 K/uL 0.3-0.9 Eos # 0.10 K/uL 0.0-0.5 Baso # 0.05 K/uL 0.0-0.1 Glycohemoglobin A1c 08/29/2015 Glycohemoglobin (A1c) 5.7 % 4.2-6.3 31 eAG 117 mg/dL Basic Metabolic Panel 08/29/2015 Basic Metabolic Panel (SEE NOTE) 32 Glucose 93 mg/dL 74-106 BUN 8 mg/dL 7-18 Creatinine 0.9 mg/dL 0.6-1.3 Glom Filtration Rate, Estimate >60 mL/min >60 If >60 mL/min >60 33 BUN/Creat 8.8 ratio Sodium 138 mmol/L 136-145 Potassium 3.7 mmol/L 3.5-5.1 Chloride 106 mmol/L 98-107 Carbon Dioxide 27 mmol/L 21-32 Anion Gap 5 mEq/L Low 8-16 Calcium 8.5 mg/dL 8.5-10.1 Laboratory test finding 06/06/2015 Ferritin 37 ng/mL 8-252 Comprehensive Metabolic Panel 05/07/2015 Glucose 113 mg/dL High 74-106 BUN 11 mg/dL 7-18 Creatinine 1.1 mg/dL 0.6-1.3 Glom Filtration Rate, Estimate 60 mL/min >60 If >60 mL/min >60 34 BUN/Creat 10.0 ratio Sodium 139 mmol/L 136-145 Potassium 4.0 mmol/L 3.5-5.1 Chloride 106 mmol/L 98-107 Carbon Dioxide 28 mmol/L 21-32 Anion Gap 5 mEq/L Low 8-16 Calcium 8.5 mg/dL 8.5-10.1 Total Protein 6.8 g/dL 6.4-8.2 Albumin 3.9 g/dL 3.4-5.0 Globulin 2.9 g/dL 1.9-4.3 Alb/Glob 1.3 ratio Bilirubin,Total 0.2 mg/dL 0.2-1.0 Sgot/Ast 7 U/L Low 15-37 35 SGPT/Alt 18 U/L 12-78 Alkaline Phosphatase 48 U/L 45-117 CBS W/Automated Diff 05/07/2015 White Blood Count 10.4 K/uL 3.1-10.7 Red Blood Count 4.51 M/uL 3.90-5.40 Hemoglobin 13.5 gm/dL 11.6-15.8 Hematocrit 39.9 % 36.0-46.1 Mean Cell Volume 88.5 fl 80.9-99.0 Mean Corpuscular HGB 29.9 pg 25.9-32.7 Mean Corpuscular HGB Conc 33.8 g/dL 30.8-34.3 Platelet Count 268 K/uL 155-360 Red Cell Distri Width SD 41.6 fl 3-47 Red Cell Distri Width %CV 13.1 % 11.7-14.4 Mean Platelet Volume 11.5 fL 8.9-12.4 Neut% 68.5 % 40.4-72.8 Lymph % 24.6 % 17.0-46.1 Floyd % 6.1 % 4.3-13.2 Eo% 0.5 % 0.0-6.6 Bas% 0.3 % 0.0-1.1 Neut# 7.12 K/uL High 1.0-7.0 Lymph # 2.56 K/uL 1.8-7.0 Floyd # 0.63 K/uL 0.3-0.9 Eos # 0.05 K/uL 0.0-0.5 Baso # 0.03 K/uL 0.0-0.1 Laboratory test finding 05/07/2015 Vitamin B12 665 pg/mL 193-986 36 Vitamin D,25-Hydroxy 41.1 ng/mL 30.0-100.0 37 Laboratory test 05/07/2015 Anti-Nuclear Antibodies Negative AU/mL Negative 38 finding Direct Panel [id number] See Note 39 HCV Rna PCR,Quant Reflex 05/07/2015 Hepatitis C Quantitation See Note IU/mL . 40 Ana Paula HCV log10 See Note [id number] HCV Genotype See Note 42 Test Info See Note 43 Laboratory test finding 05/07/2015 LC Miscellaneous Test See Note 44 Request Glycohemoglobin A1c 04/11/2015 Glycohemoglobin (A1c) 5.6 % 4.2-6.3 45 eAG 114 mg/dL Laboratory test 04/11/2015 Thyroid Stim Hormone 0.87 uIU/mL 0.36-3.74 finding Thyroid Antibodies 04/11/2015 Antithyroglobulin Antibody < 1.0 IU/mL 0.0-0.9 46 Thyroid Peroxidase Antibodies 8 IU/mL 0-34 47 Laboratory test finding 04/11/2015 FSH 6.9 mIU/mL 48 Estradiol,Serum 182.4 pg/mL 49 Luteinizing Hormone 4.0 mIU/mL 50 Progesterone 0.4 ng/mL . 51 Prolactin 5.2 ng/mL 52 Laboratory test finding 03/17/2015 Coproporphyrin I 1 umol/molCRT Coproporphyrin III 7 umol/molCRT Creatinine, Urine 156 Creatinine,Urine 24H 1014 (700-1600) Heptacarboxylate 0 umol/m 53 Hours Of Collection 24 54 Porphobilin Umol/L 4.2 umol/L 55 Porphobilin Ur/Day 2.7 umol/d 56 Porphyrin Interp Negative 57 Urine Volume 650 mL 58 Uroporphyrin 1 umol/m 59 Hiaa 5 Urine 03/17/2015 5 Hiaa Ur Ratio 3 mg/g (0-14) 5 Hiaa Urine MG/Day 3 mg/d (0-15) 60 5 Hiaa Urine MG/L 4.2 (0.0-15.0) 61 5Hiaa Interpretation See Note 62 Creatinine, Urine 157 Creatinine,Urine 24H 1020 (700-1600) Hours Of Collection 24 63 Urine Volume 650 mL 64 5 Aminolevulinic Urine 03/17/2015 Ala Per Day 19 umol/d 65 Ala Per Volume 29 umol/L 66 Creatinine, Urine 157 Creatinine,Urine 24H 1020 (700-1600) Hours Of Collection 24 67 Urine Volume 650 mL 68 Lead Venous 03/14/2015 Lead,Venous WB @ <2.0 ug/dL (0.0-9.9) 69 Iron Panel 03/14/2015 % Saturation 25 % (12-50) Iron,Total @ 87 g/dL (35-150) Tibc @ 354 g/dL (250-450) Uibc @ 267 g/dL (130-375) Creatinine 03/14/2015 Creatinine 0.8 mg/dL (0.6-1.0) 70 GFR 87 ml/min/1.73m2 (>59) GFR ( Amer) >90 ml/min/1.73m2 (>59) GFR Interpretation <See Note> Anca Igg 03/14/2015 Anca Igg <1:20 71 Laboratory test finding 03/14/2015 C Reactive Protein @ <0.3 mg/dL ( 0.0-0.5) 72 C1 Esterase Inhib 25 mg/dL 73 Ferritin @ 29 ng/mL (8-252) Free Thyroxine @ 1.59 ng/dL High (0.76-1.46) TSH,Ultrasensitive @ 0.677 mIU/L (0.360-4.170) Transglutaminase Iga 3 [arb'U] (<20) 74 Transglutaminase Igg 2 [arb'U] (<20) Vitamin B12 @ 872 pg/mL (193-986) Comprehensive Metabolic Panel 11/06/2013 Alb/Glob 0.9 ratio Albumin 3.4 g/dL Low 3.5-5.0 Alkaline Phosphatase 96 U/L 50-136 Anion Gap 12 mEq/L 8-16 BUN 12 mg/dL 5-23 BUN/Creat 20.0 ratio Bilirubin,Total 0.2 mg/dL 0.2-1.2 Calcium 9.2 mg/dL 8.5-10.1 Carbon Dioxide 27 mEq/L 18-29 Chloride 104 mmol/L 98-107 Creatinine 0.6 mg/dL 0.5-1.4 Globulin 3.8 g/dL 1.9-4.3 Glom Filtration Rate, Estimate >60 mL/min >60 Glucose 73 mg/dL Low 76-115 If >60 mL/min >60 75 Potassium 3.9 mmol/L 3.5-5.1 SGPT/Alt 20 U/L Low 30-65 Sgot/Ast 14 U/L Low 16-40 Sodium 139 mmol/L 136-145 Total Protein 7.2 g/dL 6.3-8.0 GC / Chlamydia 09/27/2011 Chlamydia Negative GC Negative 76 Laboratory test finding 09/27/2011 Cytology Pap See Note 77 1 R20.2 M25.50 2 Positive: 5 of the following Borrelia-specific bands: 18,23,28,30,39,41,45,58, 66, and 93. Negative: No bands or banding patterns which do not meet positive criteria. 3 Note: An equivocal or positive EIA result followed by a negative Western Blot result is considered NEGATIVE. An equivocal or positive EIA result followed by a positive Western Blot is considered POSITIVE by the CDC. Positive: 2 of the following bands: 23,39 or 41 Negative: No bands or banding patterns which do not meet positive criteria. Criteria for positivity are those recommended by CDC/ASTPHLD. p23=Osp C, r39=tehngsfmb Note: Sera from individuals with the following may cross react in the [place] Western Blot assays: other spirochetal diseases (periodontal disease, leptospirosis, relapsing fever, yaws, and pinta); connective autoimmune (Rheumatoid Arthritis and Systemic Lupus Erythematosus and also individuals with Antinuclear Antibody); other infections (Quintana Spotted Fever; Reji-Acharya Virus, and Cytomegalovirus). Performed at: [facility] [address] [id number] Manager Floral: Alma Hays MD, Phone: [phone] Immunoglobulin G (IgG), S was cancelled on 01/13/2017 at 11:26; Test cancelled by RBS rule <IGGS2> Reason: Test IGG is cancelled due to be ordered with Test IGGS Test Performed by: [address] [address] 5 Test Performed by: [address] [id number] 6 Test Performed by: [address] [address] 7 REFERENCE VALUE 18.4 - 106.0 8 REFERENCE VALUE 2.4 - 121.0 Test Performed by: [address] [address] 9 REFERENCE VALUE Vaccinated: Positive (>=0.01 IU/mL) Unvaccinated: Negative (< 0.01 IU/mL) 10 Test Performed by: [facility] - [address] [address] 11 Normal and robust lymphocyte proliferative responses to PHA and PWM. Reviewed by: Glenn Mendoza, Ph.D., D([facility]), FAAAAI ADDITIONAL INFORMATION Data are expressed as % proliferating cells of total specific cell population. The % Day 0 viability of the sample was determined using a flow cytometry assay which includes individual assessment of viable, apoptotic and cells. This method differs from the commonly used method of trypan blue dye exclusion which only identifies cells, and counts apoptotic cells along with the viable cells, resulting in an apparent higher cell viability. However, apoptotic cells do not contribute to cell proliferation and therefore accurate measurement of only viable cells provides meaningful information on the cells involved in stimulation and proliferative response. Strongly recommend using "critical ambient shipping boxes" available through [facility] ([facility]) inventory to ensure optimal transport of critical samples used for functional cellular assays. This test was developed using an analyte specific reagent. Its performance characteristics were determined by [facility] in a manner consistent with CLIA requirements. This test has not been cleared or approved by the U.S. Food and Drug Administration. 12 Mononuclear cell preparation contains excess neutrophils. Consider repeating this test if clinically indicated. Test Performed by: [facility] - [address] [address] 13 Normal proliferative responses to antigens - Miya (CA) and Tetanus toxoid (TT). Reviewed by: Braxton Mandel M.D. ADDITIONAL INFORMATION Data are expressed as % proliferating cells of total specific cell population. The % Day 0 viability of the sample was determined using a flow cytometry assay which includes individual assessment of viable, apoptotic and cells. This method differs from the commonly used method of trypan blue dye exclusion which only identifies cells, and counts apoptotic cells along with the viable cells, resulting in an apparent higher cell viability. However, apoptotic cells do not contribute to cell proliferation and therefore accurate measurement of only viable cells provides meaningful information on the cells involved in stimulation and proliferative response. Strongly recommend using "critical ambient shipping boxes" available through [facility] ([facility]) inventory to ensure optimal transport of critical samples used for functional cellular assays. This test was developed using an analyte specific reagent. Its performance characteristics were determined by [facility] in a manner consistent with CLIA requirements. This test has not been cleared or approved by the U.S. Food and Drug Administration. Viab of Lymphs at Day 0 92.2 % >=75.0 Max Prolif of CA as % CD45 29.3 % >=5.7 Max Prolif of CA as % CD3 29.5 % >=3.0 Max Prolif of TT as % CD45 8.3 % >=5.2 Max Prolif of TT as % CD3 8.0 % >=3.3 Antigen Comment See Comment Lymphocyte proliferative responses are affected by sample age. Samples received between 24-48 hours post-collection can show significant decrease in lymphocyte proliferative responses. Caution should be used when interpreting the results and clinical correlation is strongly recommended. Suggest repeat testing when clinically appropriate. Mononuclear cell preparation contains excess neutrophils. Consider repeating this test if clinically indicated. Test Performed by: [address] [address] 14 [facility] Department of Health recommends samples be tested within 30 hours of collection. This sample exceeds that cut-off. Please consider re-drawing the specimen if clinically indicated. Reviewed by: Glenn Mendoza, Ph.D., D([facility]), FAAAAI ADDITIONAL INFORMATION This test was developed using an analyte specific reagent. Its performance characteristics were determined by [facility] in a manner consistent with CLIA requirements. This test has not been cleared or approved by the U.S. Food and Drug Administration. Test Performed by: [facility] [address] [place] [address] 15 Either of the two following conditions would be consistent with a normal response to Streptococcus pneumoniae vaccination: Antibody concentrations greater than or equal to the reference value for at least 50% of serotypes in either a pre- or post-vaccination sample. Antibody concentrations increased by 2-fold or greater for at least 50% of serotypes when comparing the pre- to the post-vaccination results. Optimal cut-offs (reference values) were derived by measuring serotype-specific IgG antibody levels in an adult cohort of 100 healthy individuals (previously unvaccinated) before and after pneumococcal vaccination and identifying the antibody level for each serotype that included the largest number of individuals with a negative response (below cut-off) pre-vaccination and a positive response (above cut-off) post-vaccination. ADDITIONAL INFORMATION All 23 serotypes assessed by this assay are included in the Pneumovax 23 vaccine. IgG antibody concentrations following Pneumovax 23 administration are a reflection of an individual's humoral immune response to polysaccharide antigens. Serotypes 1, 3, 4, 5, 6A (6), 14, 19F (19), 23F (23), 6B (26), 7F (51), 18C (56), 19A (57) and 9V (68) are included in the Prevnar-13 conjugate vaccine. Antibody concentrations following Prevnar-13 administration are a reflection of an individual's response to protein-conjugated antigens. Serotypes 2, 8, 9N (9), 12F (12), 17F (17), 20, 22F (22), 10A (34), 11A (43), 15B (54) and 33F (70) are present only in the Pneumovax 23 vaccine and not in Prevnar-13. Responses to these 11 serotypes are a reflection of an individual's response to polysaccharide antigens. Serotype 6A is only present in Prevnar-13. This test was developed and its performance characteristics determined by [facility] in a manner consistent with CLIA requirements. This test has not been cleared or approved by the U.S. Food and Drug Administration. Test Performed by: [facility] [address] [place] [id number] 16 REFERENCE VALUE Vaccinated: Positive (>=0.01 IU/mL) Unvaccinated: Negative (< 0.01 IU/mL) 17 ADDITIONAL INFORMATION This test was developed and its performance characteristics determined by [facility] in a manner consistent with CLIA requirements. This test has not been cleared or approved by the U.S. Food and Drug Administration. Test Performed by: [address] [address] 18 R10.10 R20.2 R73.9 19 Note: Persistent reduction for 3 months or more in an eGFR <60 mL/min/1.73 m2 defines CKD. Patients with eGFR values >/=60 mL/min/1.73 m2 may also have CKD if evidence of persistent proteinuria is present. The original MDRD equation for estimated GFR is not valid for patients less than 18 years of age. Additional information may be found at www.kdoqi.org. 20 Values below the stated reference ranges of AST and ALT can be seen in normal populations. Clinical correlation is suggested. 21 Method: Sediplast Modified Westergren 22 Performed at: RN - [facility] [address] [id number] Manager Floral: Alma Hays MD, Phone: [phone] 23 Elevated levels of HbA1c suggest the need for more aggressive treatment of glycemia. The [place] [employer] recommends that a primary goal of therapy should be a HbA1c of <7% and that physicians should re-evaluate the treatment regimen in patients with HbA1c values consistently >8%. 24 Screen Room Operator: [id number] If is still suspected, please repeat test after 48 to 72 hours. 25 Screen Room Operator: [id number] COMFORT RADHIKA 26 Screen Room Operator: [id number] COMFORT RADHIKA 27 Elevated levels of HbA1c suggest the need for more aggressive treatment of glycemia. The [place] [employer] recommends that a primary goal of therapy should be a HbA1c of <7% and that physicians should re-evaluate the treatment regimen in patients with HbA1c values consistently >8%. 28 Note: Persistent reduction for 3 months or more in an eGFR <60 mL/min/1.73 m2 defines CKD. Patients with eGFR values >/=60 mL/min/1.73 m2 may also have CKD if evidence of persistent proteinuria is present. The original MDRD equation for estimated GFR is not valid for patients less than 18 years of age. Additional information may be found at www.kdoqi.org. 29 Values below the stated reference ranges of AST and ALT can be seen in normal populations. Clinical correlation is suggested. 30 Result confirmed by repeat analysis. 31 Elevated levels of HbA1c suggest the need for more aggressive treatment of glycemia. The [place] [employer] recommends that a primary goal of therapy should be a HbA1c of <7% and that physicians should re-evaluate the treatment regimen in patients with HbA1c values consistently >8%. 32 QUERY: Is the Patient Fasting? N 33 Note: Persistent reduction for 3 months or more in an eGFR <60 mL/min/1.73 m2 defines CKD. Patients with eGFR values >/=60 mL/min/1.73 m2 may also have CKD if evidence of persistent proteinuria is present. The original MDRD equation for estimated GFR is not valid for patients less than 18 years of age. Additional information may be found at www.kdoqi.org. 34 Note: Persistent reduction for 3 months or more in an eGFR <60 mL/min/1.73 m2 defines CKD. Patients with eGFR values >/=60 mL/min/1.73 m2 may also have CKD if evidence of persistent proteinuria is present. The original MDRD equation for estimated GFR is not valid for patients less than 18 years of age. Additional information may be found at www.kdoqi.org. 35 Values below the stated reference ranges of AST and ALT can be seen in normal populations. Clinical correlation is suggested. 36 MAY WANT TO ORDER HCV QUALITATIVE AND RNA PCR PER ROMIE QUERY: Is the Patient Fasting? N 37 Vitamin D deficiency has been defined by the [place] [employer] and an Endocrine Society practice guideline as a level of serum 25-OH vitamin D less than 20 ng/mL (1,2). The Endocrine Society went on to further define vitamin D insufficiency as a level between 21 and 29 ng/mL (2). 1. IOM ([place] [employer]). 2010. Dietary reference intakes for calcium and D. [place]: The National Academies Press. 2. Hector MF, Cynthia HIRSCH, Filippo GUPTA, et al. Evaluation, treatment, and prevention of vitamin D deficiency: an Endocrine Society clinical practice guideline. JCEM. 2010; 96(7):1911-30. Performed at: [address] [id number] Manager Floral: Alma Hays MD, Phone: [phone] 38 Performed at: [address] [id number] Manager Floral: Jefe Mcfarland MD, Phone: [phone] Performed at: [facility] [address] [id number] Manager Floral: Mary Ellen Adair MD, Phone: [phone] Performed at: [address] [id number] Manager Floral: Alma Hays MD, Phone: [phone] MAY WANT TO ORDER HCV QUALITATIVE AND RNA PCR PER ROMIE 39 No reportable results 40 HCV Not Detected 41 Unable to calculate result since non-numeric result obtained for component test. 42 Not indicated 43 The quantitative range of the assay is 15 IU/mL to 100 million IU/mL using CORONA(R) TaqMan(R) HCV test, v 2.0. The limit of detection (LOD) and lower limit of quantification (LLOQ) for this assay is 15 IU/mL. Results less than the quantitative range of the assay will be reported as "HCV RNA detected, less than 15 IU/mL". Performed at: [address] [id number] Manager Floral: Jefe Mcfarland MD, Phone: [phone] Performed at: [address] [id number] Manager Floral: Alma Hays MD, Phone: [phone] 05/07/15 LAB.BEW WRONG TEST 45 Elevated levels of HbA1c suggest the need for more aggressive treatment of glycemia. The [place] [employer] recommends that a primary goal of therapy should be a HbA1c of <7% and that physicians should re-evaluate the treatment regimen in patients with HbA1c values consistently >8%. 46 Low positive Thyroglobulin antibodies are seen in a portion of the asymptomatic populations. Antithyroglobulin antibodies measured by [facility] [place] [employer] 47 Performed at: [facility] [address] [id number] Manager Floral: Alma Hays MD, Phone: [phone] 48 NORMALLY MENSTRUATING FEMALES: Follicular Phase:............... 2.3-12.6 mIU/mL Mid-Cycle Peak:................. 5.2-17.5 mIU/mL Luteal Phase:................... 1.7-9.5 mIU/mL POSTMENOPAUSAL FEMALES: On menopausal hormone therapy (MHT)... 5.9-72.8 mIU/mL Not on MHT ........................... 0.7-10.8 mIU/mL 49 Reference Range: Follicular Phase ............... 19.5 - 144.2 pg/mL Mid-Cycle Peak ................. 63.9 - 356.7 pg/mL Luteal Phase ................... 55.8 - 214.2 pg/mL Postmenopausal Female .......... 0 - 32.2 pg/mL 50 Pubertal adults FEMALES, menstrual cycle phases: Follicular Phase............. 1.9-12.8 mIU/mL Mid-Cycle Peak............... 22.2-76.1 mIU/mL Luteal Phase................. 0.6-13.5 mIU/mL Post-meonpausal FEMALE: On menopausal hormone therapy (MHT) ... 1.1-52.4 mIU/mL Not on MHT ............................ 8.6-61.8 mIU/mL 51 Follicular phase 0.2 - 1.5 Luteal phase 1.7 - 27.0 Ovulation phase 0.8 - 3.0 First trimester 8.8 - 48.6 Second trimester 12.4 - 75.8 Third trimester 58.5 - 222.3 Postmenopausal 0.1 - 0.8 52 Non- ..... 2.2-30.3 ng/mL ......... 8.1-347.6 ng/mL Post-Menopausal .. 0.7-31.5 ng/mL 53 Reference range: 0 to 2 Unit: umol/mol [employer] 54 Reference range: 0.0 to 8.8 55 Unit: mg/dL 56 Unit: mg/d Performed by [facility], [address] [place] [id number] www.[email or web address], Jeff Caballero MD, Lab. Director 57 INTERPRETIVE INFORMATION: Porphyrins, Fractionation and Quantitation, Urine Results are normalized to creatinine concentration and reported as a ratio of amounts (micromoles of porphyrin/moles of creatinine). Test developed and characteristics determined by [facility]. See Compliance Statement B: [facility]/CS 58 Reference range: 0 to 6 59 Reference range: 0 to 4 Unit: umol/mol [employer] 60 Unit: mg/d 61 Unit: mg/dL 62 Unit: mg/gCR 63 Unit: mg/L 64 INTERPRETIVE INFORMATION: 5-Hydroxyindoleacetic Acid (HIAA), Urine 5-Hydroxyindoleacetic acid (5-HIAA) results are expressed as a ratio to creatinine excretion (mg/g [employer]). HIAA mass per day (mg/d) is not reported if urine collection is random or other than 24 hours, or if urine volume less than 400 mL/d. No reference interval is available for results reported in units of mg/L. Increased urine 5-HIAA concentration is common and may be the result of improper specimen collection, consumption of serotonin containing foods or dietary supplements, drug interference, or malabsorption syndromes. Significant elevation (ten times the upper reference limit) of urine 5-HIAA may indicate the presence of a carcinoid tumor. Performed by [facility], [address] [facility] [place] [address] www.[email or web address], Jeff Caballero MD, Lab. Director 65 Unit: mg/d 66 Unit: mg/dL Performed by [facility], [address] [facility],[place] [id number] www.[email or web address], Jeff Caballero MD, Lab. Director 67 Reference range: 0 to 35 68 Reference range: 0 to 60 69 Adult Evaluation Criteria . Blood Lead Interpretation 0.0- 9.9 mcg/dL Minimal Exposure No action required 10.0-25.0 mcg/dL Exposure occurring Identify and minimize 25.1-40.0 mcg/dL Regular exposure occurring Remove from exposure if symptomatic. 40.1-80.0 mcg/dL Serious health damage may be occurring. Remove from lead exposure. Immediate medical evaluation. > 80.0 mcg/dL Permanent health damage may occur. Chelation may be indicated if symptomatic. [place] Guidelines, July 2008 70 NORMAL KIDNEY FUNCTION OR MILD DISEASE - GFR >OR=60 CHRONIC KIDNEY DISEASE - GFR 15 - 59 RENAL FAILURE - GFR <15 Est. GFR calculation based on the MDRD study equation, which assumes a steady state for creatinine. Est. GFR should not be used for medication dosing. 71 Reference range: <1:20 The ANCA IFA is <1:20; therefore, no further testing will be performed. INTERPRETIVE INFORMATION: Anti-Neutrophil Cyto Ab, IgG Neutrophil Cytoplasmic Antibodies (C-ANCA=granular cytoplasmic staining, P-ANCA=perinuclear staining) are found in the serum of over 90 percent of patients with certain necrotizing systemic vasculitides, and usually in less than 5 percent of patients with collagen vascular disease or arthritis. Performed by [facility], [address] [facility] [place] [id number] www.[email or web address], Jeff Caballero MD, Lab. Director 72 INTERPRETATION OF RESULTS: < 20 UNITS NEGATIVE 20-30 UNITS WEAK POSITIVE > 30 UNITS MODERATE TO STRONG POSITIVE The following result was obtained with the INOVA QUANTA Lite h-tTG IgA ANDREA. Results obtained with other manufacturers' assay methods may not be used interchangeably. The magnitude of the reported IgA level cannot be correlated to an endpoint titer. Performed at [address] [place] [address] 73 Reference range: 21 to 39 Performed by [facility], [address] [place] [id number] www.[email or web address], Jeff Caballero MD, Lab. Director 74 INTERPRETATION OF RESULTS: < 20 UNITS NEGATIVE 20-30 UNITS WEAK POSITIVE > 30 UNITS MODERATE TO STRONG POSITIVE The following result was obtained with the INOVA QUANTA Lite h-tTG IgG ANDREA. Results obtained with other manufacturers' assay methods may not be used interchangeably. The magnitude of the reported IgG levels cannot be correlated to an endpoint titer. Performed at [address] [place] [address] 75 Note: Persistent reduction for 3 months or more in an eGFR <60 mL/min/ 1.73 m2 defines CKD. Patients with eGFR values >/=60 mL/min/1.73 m2 may also have CKD if evidence of persistent proteinuria is present. The original MDRD equation for estimated GFR is not valid for patients less than 18 years of age. Additional information may be found at www.kdoqi.org. 76 [facility] [address] [place] [address], [address] [place] [address] GC / CHLAMYDIA REPORT Name: Felicia Gold : 1980 (Age: 31) Sex: F Location: [facility] Soc. Sec. #: [id number] Date Collected: 09/27/2011 Billing #: [id number] Date Received: 09/27/2011 Physician(s): CARMELO DEGROOT MD Source of Specimen: ThinPrep, APTIMA Results: Neisseria gonorrhoeae NEGATIVE Chlamydia trachomatis NEGATIVE Comment: This analysis was performed using second generation nucleic acid amplification testing (NAAT). Reported: 09/28/2011 Electronic Signature [facility] Jennifer Morse [facility] Outreach Technical Laboratory [facility] ICD-9 Codes: 616.10 77 Cytology Laboratory [address] [place] [address], [address] [place] [id number] CYTOLOGY REPORT Name: Felicia Gold : 1980 (Age: 31) Sex: F Location: [facility] Date Collected: 09/27/2011 Billing #: [id number] Date Received: 09/27/2011 Physician (s): CARMELO DEGROOT MD Source of Specimen: ENDOCERVICAL/ECTOCERVICAL THIN PREP Clinical Information: Date of Last Menstrual Period: 09/08/11 Menstrual History: Regular Specimen Adequacy: SATISFACTORY FOR EVALUATION. ADEQUATE ENDOCERVICAL/TRANSFORMATION ZONE. General Categorization: NEGATIVE FOR INTRAEPITHELIAL LESION OR MALIGNANCY. lgs Electronic Signature [place], OCTAVIO (ASCP) Reported: 09/29/2011 Cytology Outreach [facility] ICD-9 Code(s) V72.31 Procedures Description No Information Encounters Type Date Location Provider CPT E/M Dx Office Visit 03/17/2017 3:20p [place] [address] N20.0 M25.50 J32.9 B37.9 Office Visit 01/17/2017 3:20p [place] [address] R20.2 N20.0 M25.50 J32.9 Office Visit 01/05/2017 9:40a [place] [address] R20.2 M25.551 M79.602 B37.9 N20.0 Office Visit 12/15/2016 11:00a [place] [address] R20.2 R10.10 M79.602 B37.9 R21 Office Visit 10/18/2016 11:20a [place] [address] R20.2 J32.9 M79.602 M25.551 M25.552 Office Visit 02/24/2016 11:00a [place] [address] R20.2 J01.90 M25.551 M25.552 Office Visit 10/28/2015 9:40a [place] [address] R10.10 R22.9 R20.2 Office Visit 10/02/2015 1:00p [place] [address] R22.9 R10.10 R20.2 Office Visit 09/05/2015 11:20a [place] [address] J06.9 R22.9 Office Visit 08/13/2015 2:20[place] [address] F41.9 R11.0 Office Visit 07/08/2015 10:00a Primary Care Office Jinny Caldwell M.D. 67573 B37.9 F41.9 Office Visit 07/01/2015 3:30[place] [address] F41.9 R11.0 Office Visit 06/20/2015 3:40p [place] [address] H66.91 R73.9 B37.9 Office Visit 05/27/2015 2:40[place] [address] F41.9 Office Visit 05/07/2015 1:20p [place] [address] R11.0 R20.2 Office Visit 05/02/2015 10:00a Family Medicine GAVIN AguillonP [address] R11.0 Z79.3 Office Visit 04/11/2015 10:30a Family Medicine JAKE Aguillon [address] 787.02 790.6 V25.01 Office Visit 04/09/2015 10:00a Family Medicine Galina Perez M.D. 23422 787.02 Plan of Care Future Appointment(s):01/03/2018 10:00 am - Shante Chen MD at Primary Care Gzmtcv9809/05/2017 - Shante Chen MDN20.0 Calculus of kidneyNew Labs: Comprehensive Metabolic PanelCBS W/Automated DiffVitamin D,25- HydroxyMagnesiumComments:-Small stones [id number]-Oakbwaurc results reviewed: Low urine volume, urine citrate improved, pH and urinary calcium ok-Advised increasing hydration to increase Urine volume-Potassium citrate 10meq one day- Will repeat litholink before summer-Last CT shows no change in the jekbqvH62.9 Chronic sinusitis, unspecifiedComments:-sees ENT for chronic sinusitis-Has recurrent thrush and sinusitis-Immunology workup and 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 Zack Ham and Dr. Eng
[2017-10-03 12:40] VITALS: BP 90/52
--- NOTE | 2017-10-03 13:17 | UC ---
Complaint Female HPI - HPI Summary HPI Summary: Patient has hx of kidney stones, she started with sever right flank pain this morning, it comes and goes, denies any other urinary symptoms. has had tubal ligation and is not sexually active, denies fever or nausea - History Of Current Complaint Chief Complaint: UCGU Stated Complaint: BACK PAIN KIDNEY COMPLAINT Time Seen by Provider: 10/03/17 13:01 Hx Obtained From: Patient Hx Last Menstrual Period: 09/05/17 ?: No Onset/Duration: Sudden Onset, Lasting Hours Timing: Intermittent Severity Initially: Moderate Severity Currently: Moderate Pain Intensity: 5 Character: Sharp, Cramping Aggravating Factor(s): Movement, Urination Associated Signs And Symptoms: Positive: Back Pain - Allergies/Home Medications Allergies/Adverse Reactions: Allergies Allergy/AdvReac Type Severity Reaction Status Date / Time MS Metoclopramide AdvReac See Comment Verified 10/03/17 12:40 [From Reglan] MS Prochlorperazine AdvReac See Comment Verified 10/03/17 12:40 [From Compazine] MS Promethazine AdvReac See Comment Verified 10/03/17 12:40 [From Phenergan] Home Medications: Home Medications Potassium Citrate [Urocit-K] 10 meq PO DAILY 10/03/17 [History Confirmed ] PMH/Surg Hx/FS Hx/Imm Hx Previously Healthy: Yes - Surgical History Surgical History: Yes Surgery Procedure, Year, and Place: 09/2015 BIOPSY LYMPH NODE-NECK(BENIGN) [facility]. 01/2015 [facility]. SINUS SURGERY 05/2016 - Family History Known Family History: Positive: Hypertension - Social History Alcohol Use: Daily Alcohol Amount: 4-5 GLASSES PER WEEK Substance Use Type: Marijuana Substance Use Comment - Amount & Last Used: daily usage, last used today Smoking Status (MU): Former Smoker Type: Cigarettes Amount Used/How Often: 1PPD 13 YRS Have You Smoked in the Last Year: No When Did the Patient Quit Smoking/Using Tobacco: 06/2013 - Immunization History Most Recent Influenza Vaccination: not this season Review of Systems Constitutional: Negative Skin: Negative Eyes: Negative ENT: Negative Respiratory: Negative Cardiovascular: Negative Gastrointestinal: Negative Genitourinary: Other - right flank pain Motor: Negative Neurovascular: Negative Musculoskeletal: Negative Neurological: Negative Psychological: Negative Is Patient Immunocompromised?: No All Other Systems Reviewed And Are Negative: Yes Physical Exam Triage Information Reviewed: Yes Appearance: Well-Appearing, Well-Nourished, Pain Distress Vital Signs: Initial Vital Signs Temp 99.2 F 10/03/17 12:34 Pulse 77 10/03/17 12:34 Resp 17 10/03/17 12:34 BP 90/52 10/03/17 12:34 Pulse Ox 99 10/03/17 12:34 Vital Signs Reviewed: Yes Eye Exam: Normal ENT Exam: Normal Dental Exam: Normal Neck exam: Normal Respiratory Exam: Normal Cardiovascular Exam: Normal Cardiovascular: Positive: RRR, No Murmur, Pulses Normal Abdominal Exam: Normal Abdomen Description: Positive: Nontender, No Organomegaly, Soft, CVA Tenderness (R) - mild, CVA Tenderness (L) - neg Bowel Sounds: Positive: Present Musculoskeletal Exam: Normal Musculoskeletal: Positive: Strength Intact, ROM Intact, No Edema Neurological Exam: Normal Psychological Exam: Normal Skin Exam: Normal Complaint Female Dx - Course Course Of Treatment: hx obtained, exam performed meds reviewed, prior auth for CT obtained - Differential Dx/Diagnosis Differential Diagnosis/HQI/PQRI: Renal Colic, Ureteral Stone, Urinary Tract Infection Provider Diagnoses: flank pain, right,. renal stone Discharge - Discharge Plan Condition: Stable Disposition: HOME Patient Education Materials: Kidney Stones (ED) Referrals: Shante Chen MD [Primary Care Provider] - Additional Instructions: 1. you did have two small stones that have appeard to pass into the bladder 2. Increas fluid intake and stay hydrated 3. any increase in pain follow up with your medical provider.
--- NOTE | 2017-10-03 14:20 | RAD ---
CLINICAL HISTORY: Right flank pain in a patient reports a history of kidney stones COMPARISON: Contrast CT enhancement of the abdomen and pelvis dated October 29, 2015 and more recent noncontrast CT of the abdomen and pelvis dated January 25, 2017 TECHNIQUE: Noncontrast CT examination of the abdomen and pelvis from the lung bases through the initial tuberosities. FINDINGS: VISUALIZED LUNG BASES: The visualized lung bases are grossly clear. There is no pleural effusion. ABDOMEN AND PELVIS: Evaluation of the solid organs and vasculature is limited without intravenous contrast. The liver, spleen, pancreas and adrenal glands are grossly normal in appearance. The gallbladder is normal. The left kidney is normal in appearance without focal mass, calcification or signs of hydronephrosis. At the lower pole right renal collecting system there are 2 punctate calcifications (image 63 and image 59) that correspond to calcifications seen on the most recent CT examination. There are no definite renal calculi in either ureter or the urinary bladder. Evaluation of the gastrointestinal tract is limited without oral contrast. The small and large bowel are not distended. The normal-appearing appendix is likely identified in the right lower quadrant (sagittal image 47 and coronal image 35) measuring under 5 mm in diameter. There is no gross retroperitoneal or mesenteric lymphadenopathy. The pelvic viscera is normal in appearance. The left ovarian vein measures at least 7 mm in diameter (image 62). The abdominal aorta and iliac arteries are normal in course and diameter. There are no sinister bone lesions. IMPRESSION: 1. Stable punctate right-sided renal calculi without CT signs of acute inflammatory change or obstructive uropathy. 2. Comparison to prior CT imaging includes contrast-enhanced CT of the abdomen and pelvis dated October 29, 2015. On this contrast-enhanced CT exam the left ovarian vein measures at least 7 mm in diameter and communicates with periuterine veins also measuring 7 mm in diameter (5 mm or less is considered normal). This appearance could be seen in the setting of pelvic congestion syndrome (PCS). Clinically, PCS is characterized by late day, gravity dependent abdominopelvic pain that can radiate proximally to include the flank and low back or distally to include the proximal thighs, vague gastrointestinal symptoms, superficial varicose veins overlying the pelvis and legs and/or dyspareunia.
== END 2017-10-03 14:36 | disposition home or self-care (01) ==
LOC: UCCORT 11:52
DX: R10.9 Unspecified abdominal pain (principal); N20.0 Calculus of kidney; Z87.442 Personal history of urinary calculi; Z88.8 Allergy status to other drugs, medicaments and biological substances; Z87.891 Personal history of nicotine dependence
CPT/HCPCS: 74176; 81003; 99211; G0463